=== PATIENT | female | born 1965 | race Caucasian/White ===

== ENCOUNTER → 2021-03-16 | Outpatient (CLI) | payer BC, OTHER ==
[~2021-03-16] MED LIST: B COMPLEX1 EACH PO; CLONAZEPAM 0.50.5 M1 PO; FOLIC ACID1 MG PO; HAIR, SKIN AND1 EAC2 PO; OXCARBAZEPINE300 MG PO; QUETIAPINE FUM300 MG PO; SERTRALINE HCL100 MG PO; VITAMIN C500 M1 PO; VITAMIN D325 MC3 PO
[2021-03-16 11:44] LABS: URINE BILIRUBIN NEGATIVE (Negative); URINE BLOOD NEGATIVE (Negative); URINE CLARITY CLEAR; URINE COLOR YELLOW; URINE GLUCOSE-RANDOM* NEGATIVE (Negative); URINE KETONES NEGATIVE (Negative); URINE LEUKOCYTES-REFLEX NEGATIVE (Negative); URINE NITRITE-REFLEX NEGATIVE (Negative); URINE PROTEIN (DIPSTICK) NEGATIVE (Negative); URINE SPECIFIC GRAVITY 1.025 (1.005-1.035); URINE UROBILINOGEN 0.2 E.U./dl (0.2-1.0)
[2021-03-16 11:45] LABS: HEMATOCRIT 39.3 % (37.0-47.0); HEMOGLOBIN 13.1 gm/dL (12.0-15.0); MCH 30.7 pg (26.0-34.0); MCHC 33.2 g/dL (28.0-37.0); MCV 92.5 fL (80.0-100.0); RBC 4.25 mil/uL (4.20-5.00); RDW 14.2 % (10.5-14.5); WBC 8.2 thou/uL (4.0-11.0)
[2021-03-16 12:00] LABS: INR 0.95; PROTIME 10.4 Seconds (10.5-12.1)
[2021-03-16 12:07] LABS: CALCIUM 9.4 mg/dL (8.5-10.1); CREATININE 0.6 mg/dL (0.6-1.0)
--- NOTE | 2021-03-16 13:23 | EKG ---
[place] [address] [facility] [place] [address] ELECTROCARDIOGRAM REPORT Name: MARIBELL HIGHTOWER Room #: MERNA Church#: [id number] Admission: 03/16/21 Attend Phys: Nancy Sherman DO Discharge: Date of : 65 Report #: [id number] [facility] Test Date: 2021-03-16 Test Time: 11:39:33 Pat Name: MARIBELL HIGHTOWER Department: Room: Gender: F Sap Technical Architect: DEANA : 1965 Requested By: Tyrel Oleary Order Number: [id number] MD: Feliciano Capone Measurements Intervals [place] Rate: 58 P: 23 RI: 144 QRS: 39 QRSD: 102 T: 37 QT: 422 QTc: 415 Interpretive Statements Sinus rhythm Abnormal R-wave progression, early transition No previous ECG available for comparison Electronically Signed On 03-16-2021 13:23:52 CDT by Feliciano Capone [email or web address] <ELECTRONICALLY SIGNED> By: Feliciano Capone MD, [facility] 03/16/21 1323 1139 1139 Feliciano Capone MD, FACC /EPI
== END ==
LOC: LAB 10:27
PROVIDERS: Orthopaedic Surgery; ATTEND Student in an Organized Health Care Education/Training Program
DX: Z01.812 Encounter for preprocedural laboratory examination (principal); Z20.822 Contact with and (suspected) exposure to COVID-19; I49.9 Cardiac arrhythmia, unspecified

== ENCOUNTER 2021-03-22 06:06 | Day surgery (SDC) | payer BC, OTHER ==
[~2021-03-22] VITALS: Ht 177.8 cm; Wt 96.2 kg
[2021-03-22 06:53] VITALS: BP 114/53
[2021-03-22 10:48] VITALS: BP 136/88
--- NOTE | 2021-03-22 12:43 | NUR ---
ASSUMED PT CARE AT 1100 FROM PACU. PT HAD R TOTAL KNEE REPLACEMENT TODAY. PT IS ALERT & ORIENTED X4. PT HAS IV SITE ON R FA 20 GAUGE. PT HAS JEREMY DRESSING, TEDS, SCD AND POLAR PACK. PT C/O OF PAIN AND GIVEN PAIN MEDICATION PER PT REQUEST. FINISHED ADMISSION HISTORY, SYSTEM, AND MEDICATION RECONCILIATION. PHYSICAL THERAPY WILL BE WORKING WITH PT TODAY. PT ON THE BED, BED ON THE LOWEST POSITION, SIDE RAILS UP, CALL LIGHT WITHIN REACH. WILL CONTINUE TO MONITOR PT. FOLLOW POC.
--- NOTE | 2021-03-22 13:10 | NUR ---
ASSESSMENT: CM REVIEWED CHART AND MET WITH PATIENT AND HER SIGNIFICANT OTHER AT THE BEDSIDE. PT IS ALERT AND ORIENTED X4. PT IS S/P RIGHT TKA. PT REPORTS THAT THEY LIVE IN A HOUSE THAT HAS ABOUT 4 STEPS WITH A HANDRAIL TO ENTER. PT REPORTS ONCE INSIDE SHE HAS NO STEPS SHE HAS TO USE. PT REPORTS BEING INDEPENDENT WITH AMBULATION BUT DOES HAVE A CANE AT HOME. PT REPORTS SHE DOES NOT HAVE A WALKER. CM DISCUSSED LIKELY NEED FOR WALKER. PT REPORTS THAT SHE HAS NO PREFERENCE OF [employer]. CM NOTIFIED [employer] WHO VERIFIED INSURANCE AND CAN PROVIDER HER WITH ONE. PT REPORTS HAVING OUTPATIENT THERAPY ARRANGED AT [facility] TO BEGIN TOMORROW AT 1PM. CM DISCUSSED ROLE. PT DOES NOT ANTICIPATE ANY NEEDS FROM CM . PT WILL WORK WITH THERAPY.
[2021-03-22 13:39] VITALS: BP 136/88
--- NOTE | 2021-03-24 08:25 | O ---
[facility] [place] [address] OPERATIVE REPORT Name: MARIBELL HIGHTOWER Room #: DEP [facility] M.R.#: [id number] Admission: 03/22/21 Attend Phys: Tyrel Oleary MD Discharge: 03/22/21 Date of : 65 Report #: [id number] THIS REPORT FOR: cc: ADELFO - No family physician/PCP ADELFO - No family physician/PCP Tyrel Oleary MD ~ DOC #: [id number] Tyrel Oleary MD DATE OF SERVICE: 03/22/2021 PREOPERATIVE DIAGNOSIS: Right knee osteoarthritis. POSTOPERATIVE DIAGNOSIS: Right knee osteoarthritis. PROCEDURE: Right total knee arthroplasty using Navio robotic assistance. SURGEON: Tyrel Oleary MD SCORER HELPER: Carisa Ochoa PA-C INDICATION FOR SCORER HELPER: Throughout the case, extensive retraction and manipulation of the knee was required. This was afforded to me by my assistant food service director. ANESTHESIA: LMA with adductor canal block. IMPLANTS: [employer]endez [employer]hew size 5 Journey II BCS Oxinium femur, size 5 tibia, size 9 constrained polyethylene and size 32 patella. TOURNIQUET TIME: 54 minutes. ESTIMATED BLOOD LOSS: 25 mL COMPLICATIONS: None. SPECIMENS: None. CONDITION UPON LEAVING THE OPERATING ROOM: Stable. INDICATIONS FOR PROCEDURE: The patient is a 55-year-old female with severe right knee valgus osteoarthritis. She has had failed conservative measures for this and after discussion with her, she elected for right total knee arthroplasty. DESCRIPTION OF PROCEDURE: Risks, benefits, alternatives, complications were discussed in detail with the patient including but not limited to risk of anesthesia; risk of damage to nerves, arteries, blood vessels; risk for [facility] [address] [place] [address] OPERATIVE REPORT Name: J CARLOS HIGHTOWERINE Room #: DEP [facility] M.R.#: [id number] Admission: 03/22/21 Attend Phys: Tyrel Oleary MD Discharge: 03/22/21 Date of : 65 Report #: [id number] infection, bleeding; risk for continued knee pain, need for reoperation. Informed consent was obtained from the patient. Right knee was appropriately marked in preoperative holding area. IV Ancef was given for preoperative antibiotics. She was brought to the operating room and placed in supine position on the operating room table. LMA anesthesia was induced without complication. Tourniquet was placed on the right thigh. Right lower extremity was prepped and draped in normal sterile fashion. Timeout was performed properly identifying the patient and procedure as well as the instrumentation and implants. All in the operating room were in agreement. Right lower extremity was exsanguinated, tourniquet was inflated. Tourniquet time was 54 minutes. Standard midline approach to knee was made with 10 blade through the skin. Dissection was taken down sharply to the fascia and deep flaps were developed medially and laterally. Fresh 10 blade was used to make a medial parapatellar arthrotomy and the knee was inspected. There was severe valgus osteoarthritis. ACL and PCL were removed sharply. Reference pins were placed in the femur and the tibia and the knee was digitally mapped using the Sococo robotic system. Intraoperative plan was made. We sized the size 5 femur, the size 5 tibia and a 10 spacer. After acceptance of the intraoperative plan, the distal femoral cut was made with Navio bur. Distal femoral cutting block was pinned in place and chamfer cuts were made. Attention was turned to the tibia. Remainder of the menisci removed with Bovie cautery. Tibial resection guide was pinned in place using Navio for placement and tibial resection was made. After this, flexion and extension gaps were checked and found to have good balance in flexion and extension. Tibia sized, found to be a size 5. A size 5 tibial trial was placed, pinned and punched. A size 5 femoral trial was placed and the box cut was made. This was then trialed with a size 9 polyethylene. Size 9 polyethylene demonstrated 1 mm laxity laterally throughout range of motion of the knee. She did have up to 4 mm of laxity medially and it was felt we could make up for this with a constrained implant. A 9 mm of bone was resected from the posterior surface of the patella and a size 32 patellar trial button was placed. Knee was taken through range of motion, found to be stable, found to have good patellar tracking. Trial components were removed. Bone ends were thoroughly irrigated with normal saline. Final size 5, tibia size 5 Journey II BCS Oxinium femur and a size 32 patella were cemented in place using standard cementation techniques. While the cement cured, a periarticular injection consisting of morphine, ropivacaine, epinephrine, Toradol was placed around the knee joint capsule. After the cement cured, tourniquet was deflated. Hemostasis was obtained with Bovie cautery. A final size 9 constrained polyethylene was placed. A gram of vancomycin was placed deep in the joint. Fascia was closed with 0 Vicryl. Skin was closed with 2-0 Vicryl, 3-0 Monocryl, Dermabond and a JEREMY dressing was applied. The patient tolerated this procedure well and went to recovery room under care of anesthesia postoperatively. Tyrel Oleary MD [facility] [address] [address] OPERATIVE REPORT Name: MARIBELL HIGHTOWER Room #: DEP [facility] Lynnette#: [id number] Admission: 03/22/21 Attend Phys: Tyrel Oleary MD Discharge: 03/22/21 Date of : 65 Report #: [id number] <ELECTRONICALLY SIGNED> By: Tyrel Oleary MD 03/24/21 0825 1121 1206 Tyrel Oleary MD /nt
== END 2021-03-22 14:40 | disposition home or self-care (01) ==
LOC: OR → TBA 06:06 → OR 10:38 → 4S 10:48 → OR 11:09
PROVIDERS: ATTEND Orthopaedic Surgery
DX: M17.11 Unilateral primary osteoarthritis, right knee (principal); M25.561 Pain in right knee; F41.9 Anxiety disorder, unspecified; K21.9 Gastro-esophageal reflux disease without esophagitis; Z96.652 Presence of left artificial knee joint; Z98.890 Other specified postprocedural states; Z79.899 Other long term (current) drug therapy; Z90.710 Acquired absence of both cervix and uterus
CPT/HCPCS: 50010; 50101; 50954; 51130; 51225; 51320; 53000; 53078; 53365; 54118; 56527; 56528; 57095; 57103; 57110; 57127; 57180; 62110; 62900; 70005

== ENCOUNTER → 2021-04-04 | Outpatient (CLI) | payer BC, OTHER | LOC: CAT 13:09 | PROVIDERS: ATTEND Orthopaedic Surgery | DX: R91.8 Other nonspecific abnormal finding of lung field (principal); K44.9 Diaphragmatic hernia without obstruction or gangrene; R06.02 Shortness of breath ==